=== PATIENT | male | born 1950 | race Caucasian/White ===

== ENCOUNTER 2020-12-17 15:04 | Observation (INO) | payer OTHER ==
--- OUTSIDE RECORDS SUMMARY | 2020-12-17 15:07 | XMS REPORT | Continuity of Care Document ---
:1950 Author Organization [facility] t Address [address] [place] [address] [address]. [address] [place] [address] Care Team Providers Name Role Phone Lida Dumont NP Attending Clinician Problems This patient has no known problems. Allergies, Adverse Reactions, Alerts This patient has no known allergies or adverse reactions. Medications This patient has no known medications. Procedures This patient has no known procedures. Encounters Start End Encounter Admission Attending Care Care Encounter Source Date/Time Date/Time Type Type Clinicians Facility Department ID 2020-11-16 2020-11-16 Emergency Julia [facility] [id number] 18:26:00 20:02:00 Anita Hitchcock [id number] [place] [id number] [place] [id number] Results This patient has no known results.
--- NOTE | 2020-12-17 15:56 | RAD REPORT ---
EXAM DESCRIPTION: CT - Head Brain Wo Cont - 12/17/2020 3:43 pm CLINICAL HISTORY: Slurred speech COMPARISON: 2013 TECHNIQUE: Computed axial tomography of the head was obtained. IV contrast was not requested. All CT scans are performed using dose optimization technique as appropriate and may include automated exposure control or mA/KV adjustment according to patient size. FINDINGS: An intracranial bleed is not seen . The ventricles are normal in caliber. No extra-axial fluid collection is noted. Small low-density area within the right bill radiata has the appearance of an old infarction. Mild low-density within periventricular, deep subcortical white matter probably ischemic changes secondary to small vessel disease. Fluid within the sinuses/ mastoids is not seen. IMPRESSION: No acute intracranial abnormality is seen. If patient's symptoms persist MRI of the bra in would be recommended.
--- NOTE | 2020-12-17 17:02 | RAD REPORT ---
EXAM DESCRIPTION: Leigh Ann Single View12/17/2020 4:54 pm CLINICAL HISTORY: Hypertension COMPARISON: 2017 FINDINGS: The lungs appear clear of acute infiltrate. The heart is normal size IMPRESSION: No acute abnormalities displayed
[2020-12-17 17:20] LABS: Absolute Lymphocytes (CBC) 3.1 K/uL (0.7-4.9); Hematocrit 47.5 % (39.6-49.0); Lymphocytes % 30.1 % (15.3-44.8); MPV 7.8 fL (7.6-11.3); RBC Red Blood Cell Count 5.27 M/uL (4.33-5.43)
[2020-12-17 17:24] LABS: Protime INR 0.88
[2020-12-17 17:28] LABS: BUN Blood Urea Nitrogen 10 mg/dL (7-18); Bicarbonate 27 mmol/L (21-32); Glucose Level 122 mg/dL (74-106); Potassium 4.2 mmol/L (3.5-5.1); Sodium Level 139 mmol/L (136-145)
--- NOTE | 2020-12-17 18:35 | ER ---
Nurse's Notes [facility] Name: Tito Hubbard Age: 70 yrs Sex: Male : 1950 Arrival Date: 12/17/2020 Time: 15:11 Bed 24 Private MD: Diagnosis: Cerebrovascular disease, unspecified;Ataxia, unspecified;ACUTE CVA;Aphasia following cerebral infarction Presentation: 12/17 15:17 Chief complaint: Patient states: Slurred speech, dizzy, confusion started . ll1 States it got better, then got worse again yesterday. L arm pain now. Coronavirus screen: Client denies travel out of the [place] in the last 14 days. At this time, the client does not indicate any symptoms associated with coronavirus-19. Ebola Screen: Patient denies travel to an Ebola-affected area in the 21 days before illness onset. No acute neurological deficit is noted. Initial Sepsis Screen: Does the patient meet any 2 criteria? HR > 90 bpm. No. Patient's initial sepsis screen is negative. Does the patient have a suspected source of infection? No. Patient's initial sepsis screen is negative. Risk Assessment: Do you want to hurt yourself or someone else? Patient reports no desire to harm self or others. Onset of symptoms was December 13, 2020. 15:17 Method Of Arrival: Ambulatory 1 15:17 Acuity: INDIRA 2 ll1 Triage Assessment: 16:15 The onset of the patients symptoms was December 13, 2020 at 08:00. General: Appears in no bp apparent distress. comfortable, Behavior is cooperative, appropriate for age, anxious. Pain: Denies pain. EENT: No deficits noted. Neuro: Reports dizziness, SLURRED SPEECH. Cardiovascular: No deficits noted. Respiratory: No deficits noted. GI: No signs and/or symptoms were reported involving the gastrointestinal system. : No signs and/or symptoms were reported regarding the genitourinary system. Derm: No deficits noted. Musculoskeletal: No deficits noted. Stroke Activation: Symptom onset > 6 hours Physician: Stroke Attending; Name: ; Notified At: ; Arrived At: Physician: Chief Stroke Resident; Name: ; Notified At: ; Arrived At: Physician: Stroke Resident; Name: ; Notified At: ; Arrived At: Physician: ED Attending; Name: ; Notified At: ; Arrived At: Physician: ED Resident; Name: ; Notified At: ; Arrived At: Historical: - Allergies: 15:21 Codeine; ll1 - PMHx: 15:21 Hypertension; Diabetes - NIDDM; Asthma; ll1 - PSHx: 15:21 Tonsillectomy; Appendectomy; Hernia repair; ll1 - Immunization history:: Flu vaccine is not up to date. - Social history:: Smoking status: Patient reports the use of cigarette tobacco products, smokes one-half pack cigarettes per day. Screenin:30 Abuse screen: Denies threats or abuse. Denies injuries from another. Nutritional bp screening: No deficits noted. Tuberculosis screening: No symptoms or risk factors identified. Fall Risk None identified. Assessment: 16:15 General: SEE TRIAGE NOTE. bp 16:15 VAN Scoring: Arm Drift: Patients demonstrates NO arm weakness. Patient is VAN Negative. bp The patient has not been NPO before screening. The patient is alert, and able to follow commands. The patient does not exhibit slurred or garbled speech. The patient is not exhibiting difficulty speaking. The patient does not exhibit difficulty understanding words. The patient is able to swallow own secretions with no drooling or need for suction. Patient tolerated one teaspoon of water. No drooling, immediate coughing, gurgling, or clearing of the throat was noted. The patient tolerated 90mL of water. No drooling, immediate coughing, gurgling, or clearing of the throat was noted. The patient passed the bedside swallow screening. Oral medications may be given as ordered. Contact Physician for further diet orders. Provider notified of bedside swallow screening results: Catalino Youssef MD. T-PA (Activase) Screening: Contraindications: Patient reports onset of signs and symptoms of stroke greater than 6 hours ago: Yes. Rapidly improving condition or minor deficit: Yes. 17:18 Reassessment: No changes from previously documented assessment. Patient and/or family bp updated on plan of care and expected duration. Pain level reassessed. Patient is alert, oriented x 3, equal unlabored respirations, skin warm/dry/pink. NO FOCAL NEURO DEFICITS. 18:34 Reassessment: No changes from previously documented assessment. Patient and/or family bp updated on plan of care and expected duration. Pain level reassessed. Neuro: Gait is steady. 20:00 General: Appears in no apparent distress. comfortable, Behavior is calm, cooperative. sf Pain: Denies pain. Neuro: Level of Consciousness is awake, alert, Oriented to person, place, time, situation, Flight Operations Specialist are equal bilaterally Moves all extremities. Gait is steady, Speech is normal, Facial symmetry appears normal, Intact Denies weakness blurred vision dizziness, difficulty swallowing, paresthesias numbness headache photophobia diplopia. Cardiovascular: No deficits noted. Patient's skin is warm and dry. Rhythm is sinus rhythm. Respiratory: No deficits noted. Airway is patent Respiratory effort is even, unlabored, Respiratory pattern is regular, symmetrical. GI: No deficits noted. No signs and/or symptoms were reported involving the gastrointestinal system. : No deficits noted. No signs and/or symptoms were reported regarding the genitourinary system. EENT: No deficits noted. No signs and/or symptoms were reported regarding the EENT system. Derm: No deficits noted. No signs and/or symptoms reported regarding the dermatologic system. Musculoskeletal: No deficits noted. No signs and/or symptoms reported regarding the musculoskeletal system. 21:02 Reassessment: Patient appears in no apparent distress at this time. No changes from sf previously documented assessment. Patient and/or family updated on plan of care and expected duration. Pain level reassessed. Patient is alert, oriented x 3, equal unlabored respirations, skin warm/dry/pink. Vital Signs: 15:17 BP 154 / 93; Pulse 106; Resp 18; Temp 98.0; Pulse Ox 98% on R/A; Weight 94.35 kg; ll1 Height 5 ft. 10 in. (177.80 cm); Pain 3/10; 16:26 BP 127 / 85; Pulse 96; Resp 18; Temp 97.9(O); Pulse Ox 95% on R/A; mh5 17:17 BP 130 / 75; Pulse 97; Resp 16; Pulse Ox 94% ; bp 18:30 BP 142 / 70; Pulse 94; Resp 17; Pulse Ox 96% ; bp 20:00 BP 134 / 73; Pulse 94; Resp 16; Pulse Ox 97% ; sf 15:17 Body Mass Index 29.84 (94.35 kg, 177.80 cm) ll1 NIH Stroke Scale Scores: 16:15 NIHSS Score: 0 bp 18:35 NIHSS Score: 2 tw4 ED Course: 15:11 Patient arrived in ED. 15:20 Triage completed. ll1 15:22 Arm band placed on. ll1 15:42 CT Head Brain wo Cont In Process Unspecified. EDMS 16:13 Girish Weller, DANIELLA is Primary Nurse. bp 16:25 Catalino Youssef MD is Attending Physician. tw4 16:25 Patient has correct armband on for positive identification. Bed in low position. Call mh5 light in reach. Side rails up X 1. Adult w/ patient. Pillow given. cafeteria monitor on. Pulse ox on. NIBP on. 16:50 Inserted saline lock: 20 gauge in right antecubital area, using aseptic technique. bp Blood collected. 16:53 Stroke CXR 1 View In Process Unspecified. EDMS 18:33 Francisco Blount is Hospitalizing Provider. tw4 19:19 Primary Nurse role handed off by Girish Weller, DANIELLA sf 19:19 Gaurav Mason, DANIELLA is Primary Nurse. sf 20:00 No provider procedures requiring assistance completed. COVID swab sent to lab. Patient sf admitted, IV remains in place. 22:15 Report given to DANIELLA Sims. sf 12/18 07:40 Primary Nurse role handed off by Gaurav Mason, DANIELLA bd Administered Medications: 12/17 18:45 Drug: Aspirin 162 mg Route: PO; bp 19:23 Follow up: Response: No adverse reaction sf 18:45 Drug: PlaVIX (clopidogrel) 300 mg Route: PO; bp 19:22 Follow up: Response: No adverse reaction sf Outcome: 18:34 Decision to Hospitalize by Provider. tw4 21:04 Admitted to ER Hold. Please see [facility] for further documentation. sf 21:04 Condition: stable 21:04 Instructed on the need for admit. 12/18 15:13 Patient left the ED. tw2 NIH Stroke Scale - NIH Stroke Score Date: 12/17/2020 Time: 16:15 Total Score = 0 1a. Level of Consciousness (LOC) - 0(Alert) 1b. Level of Consciousness (LOC) (Year \T\ Age) - 0(Both) 1c. LOC Commands (Open \T\ Closes Eyes/Pit Hand) - 0(Both) 2. Best Gaze (Lateral Gaze Paresis) - 0(Normal) 3. Visual Field Loss - 0(No visual loss) 4. Facial Palsy - 0(Normal) 5a. Left Arm: Motor (10-second hold) - 0(No drift) 5b. Right Arm: Motor (10-second hold) - 0(No drift) 6a. Left Leg: Motor (5-second hold - always test supine) - 0(No drift) 6b. Right Leg: Motor (5-second hold - always test supine) - 0(No drift) 7. Limb Ataxia (finger/nose \T\ heel/morales - test with eyes open) - 0(Absent) 8. Sensory Loss (pinprick arms/legs/face) - 0(Normal) 9. Best Language: Aphasia (description/naming/reading) - 0(No aphasia) 10. Dysarthria (speech clarity - read or repeat words) - 0(Normal) 11. Extinction and Inattention (visual/tactile/auditory/spatial/personal) - 0(No abnormality) Initials: bp NIH Stroke Scale - NIH Stroke Score Date: 12/17/2020 Time: 18:35 Total Score = 2 1a. Level of Consciousness (LOC) - 0(Alert) 1b. Level of Consciousness (LOC) (Year \T\ Age) - 0(Both) 1c. LOC Commands (Open \T\ Closes Eyes/Pit Hand) - 0(Both) 2. Best Gaze (Lateral Gaze Paresis) - 0(Normal) 3. Visual Field Loss - 0(No visual loss) 4. Facial Palsy - 0(Normal) 5a. Left Arm: Motor (10-second hold) - 0(No drift) 5b. Right Arm: Motor (10-second hold) - 0(No drift) 6a. Left Leg: Motor (5-second hold - always test supine) - 0(No drift) 6b. Right Leg: Motor (5-second hold - always test supine) - 0(No drift) 7. Limb Ataxia (finger/nose \T\ heel/morales - test with eyes open) - 0(Absent) 8. Sensory Loss (pinprick arms/legs/face) - 0(Normal) 9. Best Language: Aphasia (description/naming/reading) - 1(Mild to moderate aphasia) 10. Dysarthria (speech clarity - read or repeat words) - 1(Mild to Moderate) 11. Extinction and Inattention (visual/tactile/auditory/spatial/personal) - 0(No abnormality) Initials: tw4 Signatures: Dispatcher [employer] Felicia Silva [place], Whitley mr Casi Pena, RN RN tw2 Renate Amor [facility] Girish Weller, RN RN bp Catalino Youssef MD MD tw4 Zeeshan Gonzales RN RN ll1 Gaurav Mason RN RN
--- NOTE | 2020-12-17 18:35 | EDPHYS ---
Physician Documentation [facility] Name: Tito Hubbard Age: 70 yrs Sex: Male : 1950 Arrival Date: 12/17/2020 Time: 15:11 Bed 24 Private MD: ED Physician Catalino Youssef HPI: 12/17 16:51 This 70 yrs old Male presents to ER via Ambulatory with complaints of Slurred tw4 Speech, Dizziness, Confusion. 16:51 The patient presents to the emergency department with a speech or higher order brain tw4 function problem, aphasia, that is moderate, difficult walking, the patient falls to the left. Onset: The symptoms/episode began/occurred yesterday, last week. Context: occurred at home. Associated signs and symptoms: The patient has no apparent associated signs or symptoms. Severity of symptoms: At their worst the symptoms were moderate in the emergency department the symptoms are unchanged. The patient has not experienced similar symptoms in the past. Historical: - Allergies: 15:21 Codeine; ll1 - PMHx: 15:21 Hypertension; Diabetes - NIDDM; Asthma; ll1 - PSHx: 15:21 Tonsillectomy; Appendectomy; Hernia repair; ll1 - Immunization history:: Flu vaccine is not up to date. - Social history:: Smoking status: Patient reports the use of cigarette tobacco products, smokes one-half pack cigarettes per day. ROS: 16:51 Constitutional: Negative for fever, chills, and weight loss, Eyes: Negative for injury, tw4 pain, redness, and discharge, Cardiovascular: Negative for chest pain, palpitations, and edema, Respiratory: Negative for shortness of breath, cough, wheezing, and pleuritic chest pain, Abdomen/GI: Negative for abdominal pain, nausea, vomiting, diarrhea, and constipation, Back: Negative for injury and pain, MS/Extremity: Negative for injury and deformity. 16:51 Neuro: Positive for speech changes. Exam: 16:51 Constitutional: This is a well developed, well nourished patient who is awake, alert, tw4 and in no acute distress. Head/Face: Normocephalic, atraumatic. Chest/axilla: Normal chest wall appearance and motion. Nontender with no deformity. No lesions are appreciated. Cardiovascular: Regular rate and rhythm with a normal S1 and S2. No gallops, murmurs, or rubs. Normal PMI, no JVD. No pulse deficits. Respiratory: Lungs have equal breath sounds bilaterally, clear to auscultation and percussion. No rales, rhonchi or wheezes noted. No increased work of breathing, no retractions or nasal flaring. Abdomen/GI: Soft, non-tender, with normal bowel sounds. No distension or tympany. No guarding or rebound. No evidence of tenderness throughout. Skin: Warm, dry with normal turgor. Normal color with no rashes, no lesions, and no evidence of cellulitis. MS/ Extremity: Pulses equal, no cyanosis. Neurovascular intact. Full, normal range of motion. 18:35 Neuro: Orientation: is normal, Mentation: is normal, Memory: is normal, Cranial nerves: tw4 Speech is dysarthric, slurred, Cerebellar function: is grossly normal, Motor: is normal, Sensation: is normal, Gait: is unsteady. Vital Signs: 15:17 BP 154 / 93; Pulse 106; Resp 18; Temp 98.0; Pulse Ox 98% on R/A; Weight 94.35 kg; ll1 Height 5 ft. 10 in. (177.80 cm); Pain 3/10; 16:26 BP 127 / 85; Pulse 96; Resp 18; Temp 97.9(O); Pulse Ox 95% on R/A; mh5 17:17 BP 130 / 75; Pulse 97; Resp 16; Pulse Ox 94% ; bp 18:30 BP 142 / 70; Pulse 94; Resp 17; Pulse Ox 96% ; bp 20:00 BP 134 / 73; Pulse 94; Resp 16; Pulse Ox 97% ; sf 15:17 Body Mass Index 29.84 (94.35 kg, 177.80 cm) ll1 NIH Stroke Scale Scores: 16:15 NIHSS Score: 0 bp 18:35 NIHSS Score: 2 tw4 MDM: 18:31 Data reviewed: vital signs, nurses notes. Data interpreted: Pulse oximetry: tw4 Interpretation:. Counseling: I had a detailed discussion with the patient and/or guardian regarding: the historical points, exam findings, and any diagnostic results supporting the discharge/admit diagnosis, lab results, radiology results. Physician consultation: Francisco Blount regarding admission, patient's condition, and will see patient. 18:34 Patient medically screened. tw4 12/17 16:26 Order name: Basic Metabolic Panel; Complete Time: 17:38 tw4 12/17 17:38 Interpretation: Normal except: GLUC 122. 12/17 16:26 Order name: CBC with Diff; Complete Time: 17:38 tw4 12/17 17:38 Interpretation: Within normal limits. tw12/17 16:26 Order name: Protime (+inr); Complete Time: 17:38 tw4 12/17 17:38 Interpretation: Within normal limits: PT 10.1. 12/17 16:26 Order name: Ptt, Activated; Complete Time: 17:38 tw4 12/17 17:38 Interpretation: PTT 30.9. tw4 12/17 19:45 Order name: Comprehensive Metabolic Panel EDMS 12/17 19:45 Order name: Comprehensive Metabolic Panel EDMS 12/17 19:45 Order name: Lipid Profile EDMS 12/17 19:45 Order name: Lipid Profile EDMS 12/17 19:45 Order name: Magnesium EDMS 12/17 19:45 Order name: Magnesium EDMS 12/17 19:45 Order name: Phosphorus EDMS 12/17 19:45 Order name: Phosphorus EDMS 12/17 19:45 Order name: T4 Free EDMS 12/17 19:45 Order name: Thyroid Stimulating Hormone EDMS 12/17 15:24 Order name: CT Head Brain wo Cont; Complete Time: 16:25 12/17 16:26 Order name: Stroke CXR 1 View; Complete Time: 17:38 4 12/17 18:35 Order name: MRI - Brain W/Wo Cont tw 12/17 19:45 Order name: CBC with Automated Diff EDMS 12/17 19:45 Order name: CBC with Automated Diff EDMS 12/17 19:47 Order name: COVID-19 : Document "Date of Symptom Onset" if Symptomatic. mw2 12/17 21:08 Order name: SARS-COV-2 RT PCR EDMS 12/17 23:36 Order name: Glucose, Ancillary Testing EDMS 12/18 01:44 Order name: Urinalysis EDMS 12/18 05:47 Order name: Hemoglobin A1c EDMS 12/18 08:00 Order name: MRI EDMS 12/18 08:08 Order name: Glucose, Ancillary Testing EDMS 12/18 11:28 Order name: Glucose, Ancillary Testing EDMS 12/18 13:59 Order name: CT EDPR 12/18 14:06 Order name: CT EDPR 12/17 16:26 Order name: EKG; Complete Time: 16:27 tw4 12/17 16:26 Order name: Accucheck; Complete Time: 17:22 tw4 12/17 16:26 Order name: Cardiac monitoring; Complete Time: 17:23 tw4 12/17 16:26 Order name: EKG - Nurse/Tech; Complete Time: 17:23 tw4 12/17 16:26 Order name: IV Saline Lock; Complete Time: 17:23 tw4 12/17 16:26 Order name: Labs collected and sent; Complete Time: 17:23 tw4 12/17 16:26 Order name: NPO; Complete Time: 17:23 tw4 12/17 16:26 Order name: O2 Per Protocol; Complete Time: 17:23 tw4 12/17 16:26 Order name: O2 Sat Monitoring; Complete Time: 17:23 tw4 12/17 16:26 Order name: Stroke Swallow Screen; Complete Time: 17:23 tw4 12/17 19:42 Order name: CONS Physician Consult EDPR 12/17 19:45 Order name: Consistent Carb (ADA) 1800 Eulogio EDMS 12/17 19:45 Order name: Dietitian Consult EDPR EC:35 Rate is 93 beats/min. Rhythm is regular. QRS [place] is Normal. VT interval is normal. QT tw4 interval is normal. No Q waves. T waves are Normal. No ST changes noted. Clinical impression: NSR w/ Non-specific ST/T Changes. Interpreted by me. Reviewed by me. Administered Medications: 18:45 Drug: Aspirin 162 mg Route: PO; bp 19:23 Follow up: Response: No adverse reaction sf 18:45 Drug: PlaVIX (clopidogrel) 300 mg Route: PO; bp 19:22 Follow up: Response: No adverse reaction sf Disposition: 12/17/20 18:34 Hospitalization ordered by Francisco Blount for Inpatient Admission. Preliminary diagnosis are Cerebrovascular disease, unspecified, Ataxia, unspecified, ACUTE CVA, Aphasia following cerebral infarction. - Bed requested for [facility] ER HOLD. - Status is Inpatient Admission. tw2 - Condition is Stable. - Problem is new. - Symptoms are unchanged. NIH Stroke Scale - NIH Stroke Score Date: 12/17/2020 Time: 16:15 Total Score = 0 1a. Level of Consciousness (LOC) - 0(Alert) 1b. Level of Consciousness (LOC) (Year \\T\\ Age) - 0(Both) 1c. LOC Commands (Open \\T\\ Closes Eyes/Meter Calibrator) - 0(Both) 2. Best Gaze (Lateral Gaze Paresis) - 0(Normal) 3. Visual Field Loss - 0(No visual loss) 4. Facial Palsy - 0(Normal) 5a. Left Arm: Motor (10-second hold) - 0(No drift) 5b. Right Arm: Motor (10-second hold) - 0(No drift) 6a. Left Leg: Motor (5-second hold - always test supine) - 0(No drift) 6b. Right Leg: Motor (5-second hold - always test supine) - 0(No drift) 7. Limb Ataxia (finger/nose \\T\\ heel/morales - test with eyes open) - 0(Absent) 8. Sensory Loss (pinprick arms/legs/face) - 0(Normal) 9. Best Language: Aphasia (description/naming/reading) - 0(No aphasia) 10. Dysarthria (speech clarity - read or repeat words) - 0(Normal) 11. Extinction and Inattention (visual/tactile/auditory/spatial/personal) - 0(No abnormality) Initials: bp NIH Stroke Scale - NIH Stroke Score Date: 12/17/2020 Time: 18:35 Total Score = 2 1a. Level of Consciousness (LOC) - 0(Alert) 1b. Level of Consciousness (LOC) (Year \\T\\ Age) - 0(Both) 1c. LOC Commands (Open \\T\\ Closes Eyes/Meter Calibrator) - 0(Both) 2. Best Gaze (Lateral Gaze Paresis) - 0(Normal) 3. Visual Field Loss - 0(No visual loss) 4. Facial Palsy - 0(Normal) 5a. Left Arm: Motor (10-second hold) - 0(No drift) 5b. Right Arm: Motor (10-second hold) - 0(No drift) 6a. Left Leg: Motor (5-second hold - always test supine) - 0(No drift) 6b. Right Leg: Motor (5-second hold - always test supine) - 0(No drift) 7. Limb Ataxia (finger/nose \\T\\ heel/morales - test with eyes open) - 0(Absent) 8. Sensory Loss (pinprick arms/legs/face) - 0(Normal) 9. Best Language: Aphasia (description/naming/reading) - 1(Mild to moderate aphasia) 10. Dysarthria (speech clarity - read or repeat words) - 1(Mild to Moderate) 11. Extinction and Inattention (visual/tactile/auditory/spatial/personal) - 0(No abnormality) Initials: tw4 Signatures: Dispatcher [employer] EDMS Jasmine Dorsey, RN RN tl1 Casi Pena RN RN tw2 Girish Weller RN RN Catalino Farooq MD MD tw4 Zeeshan Gonzales RN RN 1 Gaurav Mason RN Corrections: (The following items were deleted from the chart) 12/18 02:23 12/17 18:34 Hospitalization Ordered by Francisco Blount for Inpatient Admission. tl1 Preliminary diagnosis is Cerebrovascular disease, unspecified; Ataxia, unspecified; ACUTE CVA; Aphasia following cerebral infarction. Bed requested for Telemetry/MedSurg (observation). Status is Inpatient Admission. Condition is Stable. Problem is new. Symptoms are unchanged. tw4 12/18 15:13 02:23 12/17/2020 18:34 Hospitalization Ordered by Francisco Blount for Inpatient tw2 Admission. Preliminary diagnosis is Cerebrovascular disease, unspecified; Ataxia, unspecified; ACUTE CVA; Aphasia following cerebral infarction. Bed requested for [facility] ER HOLD. Status is Inpatient Admission. Condition is Stable. Problem is new. Symptoms are unchanged. tl1
[2020-12-17] MEDS ORDERED: CLOPIDOGREL 75 MG TABLET ONE (19:02)
[2020-12-17] MEDS ORDERED: ASPIRIN EC 81 MG TAB PO ONE ×2 (19:02→19:08)
[2020-12-17] MEDS ORDERED: ALBUTEROL 2.5 MG/3 ML NEB SOL NEB PRN (19:41)
[2020-12-17] MEDS ORDERED: ONDANSETRON 4 MG/2 ML VIAL IV PRN (19:41)
[2020-12-17] MEDS ORDERED: ACETAMINOPHEN 500 MG TAB PO PRN (19:41)
[2020-12-17 20:11] LABS: Thyroid Stimulating Hormone 0.993 uIU/mL (0.360-3.740)
--- NOTE | 2020-12-17 20:18 | P.HP ---
Certification for Inpatient Patient admitted to: Observation With expected LOS: <2 Midnights Patient will require the following post-hospital care: None Practitioner: I am a practitioner with admitting privileges, knowledge of patient current condition, hospital course, and medical plan of care. Services: Services provided to patient in accordance with Admission requirements found in Title 42 Section 412.3 of the Code of Federal Regulations <Smith Wang - Last Filed: 12/17/20 20:13> Patient History Date of Service: 12/17/20 Primary Care Provider: none Reason for admission: slurred speech, abnormal gait History of Present Illness: Mr. Hubbard is a 70 yo male with history of multiple CVAs, HTN, and DM here today for slurred speech, abnormal gait, and blurred vision. He says symptoms began night but then improved until they began again Thursday after zoroastrianism. Symptoms resolved again, then began again today. He reports symptoms improve with rest. At bedside, he is currently asymptomatic aside from a R sided headache. He says he has had 3 CVAs before with the largest one occurring in 08/2013. He stopped taking ASA + plavix because he felt like he was bruising more easily on his arms. Currently smokes 1/[address] Head wnl. CXR wnl. - Past Medical/Surgical History Diabetic: Yes -: multiple CVAs -: HTN -: DM -: hernia repair -: appendectomy - Family History Family History: Reviewed- Non-Contributory (adopted) - Social History Smoking Status: Current every day smoker Counseled patient to stop smoking for: less than 10 minutes Smoking therapy provided: Yes Patient receptive to therapy: No Alcohol use: No CD- Drugs: No Caffeine use: Yes Place of Residence: Home <Smith Wang - Last Filed: 12/17/20 20:13> Date of Service: 12/18/20 <clint cadet - Last Filed: 12/18/20 08:16> Allergies codeine Allergy (Verified 12/18/20 01:26) Anaphylaxis Review of Systems General: Unremarkable Eyes: Vision Change, As per HPI ENT: Unremarkable Respiratory: Unremarkable Cardiovascular: Unremarkable Gastrointestinal: Unremarkable Genitourinary: Unremarkable Musculoskeletal: Unremarkable Integumentary: Unremarkable Neurological: Incoordination, Change in Speech, As per HPI Lymphatics: Unremarkable <Smith Wang - Last Filed: 12/17/20 20:13> Physical Examination - Physical Exam General: Alert, In no apparent distress, Oriented x3, Cooperative HEENT: Atraumatic, Normocephalic, PERRLA, Mucous membr. moist/pink, EOMI, Sclerae nonicteric Neck: Supple, 2+ carotid pulse no bruit, JVD not distended, No Thyromegaly, No LAD Respiratory: Diminished, Expiratory wheezes Cardiovascular: No edema, Normal pulses, Regular rate/rhythm, Normal S1 S2, No gallops, No rubs, No murmurs Capillary refill: <2 Seconds Gastrointestinal: Normal bowel sounds, Soft and benign, Non-distended, No ascites, No tenderness, No masses, No rebound, No guarding Musculoskeletal: No clubbing, No swelling, No contractures, No erythema, No tenderness, No warmth Integumentary: No rashes, No breakdown, No significant lesion, No tende rness/swelling, No erythema, No warmth, No cyanosis Neurological: Normal gait, Normal speech, Normal strength at 5/5 x4 extr, Normal tone, Sensation intact, Cranial nerves 3-12 intact, Normal affect, Other (no focal neurological deficits, speech intact, ambulating to restroom without assistance) Lymphatics: No axilla or inguinal lymphadenopathy - Studies Laboratory Data (last 24 hrs) 12/17/20 16:50: PT 10.1, INR 0.88, APTT 30.9 12/17/20 16:50: WBC 10.30, Hgb 15.8, Hct 47.5, Plt Count 378 12/17/20 16:50: Sodium 139, Potassium 4.2, BUN 10, Creatinine 0.82, Glucose 122 H <Smith Wang - Last Filed: 12/17/20 20:13> - Studies Laboratory Data (last 24 hrs) 12/17/20 16:50: PT 10.1, INR 0.88, APTT 30.9 12/17/20 16:50: WBC 10.30, Hgb 15.8, Hct 47.5, Plt Count 378 12/17/20 16:50: Sodium 139, Potassium 4.2, BUN 10, Creatinine 0.82, Glucose 122 H <clint cadet - Last Filed: 12/18/20 08:16> Assessment and Plan - Problems (Diagnosis) (1) History of CVA (cerebrovascular accident) Current Visit: Yes Status: Chronic (2) Hypertension Current Visit: Yes Status: Chronic Qualifiers: Hypertension type: essential hypertension Qualified Code(s): I10 - Essential (primary) hypertension (3) Diabetes Current Visit: Yes Status: Chronic Qualifiers: Diabetes mellitus type: type 2 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 Palafox consulted Aspirin, plavix, folic acid, and statin daily lipid panel and A1c pending nicotine patch PRN sliding scale insulin and Accuchecks for DM will reconcile and continue other home medications and inhalers Discharge Plan: Home Plan to discharge in: 24 Hours - Advance Directives Does patient have a Living Will: No Does patient have a Durable POA for Healthcare: No - Code Status/Comfort Care Code Status Assessed: Yes (full code) Critical Care: No Time Spent Managing Pts Care (In Minutes): 70 <Smith Wang - Last Filed: 12/17/20 20:13> Physician Review: Patient Assessed, Agree with Above Assessment and Plan Physician Review Additional Text: Stroke-like symptoms. R/o Acute CVA. Plan: MRI of the brain. ASA and Plavix recommended. Neurology consult <clint cadet - Last Filed: 12/18/20 08:16>
[2020-12-17] MEDS: INSULIN -REGULAR HUMAN 50 UNIT/0.5 ML ML SQ SCH (21:00)
[2020-12-17] MEDS ORDERED: ATORVASTATIN 10 MG TAB PO SCH (21:00)
[2020-12-17 22:47] VITALS: BMI 29.8
[2020-12-17] MEDS ORDERED: ATORVASTATIN 20 MG TAB ONE (23:35)
[2020-12-18 01:39] LABS: Urine Appearance CLEAR (Clear); Urine Bilirubin NEGATIVE (Negative); Urine Blood NEGATIVE (Negative); Urine Color YELLOW (Yellow); Urine Glucose 1+ (Negative); Urine Protein NEGATIVE (Negative); Urine Urobilinogen 0.2 mg/dL (0.2-1.0)
[2020-12-18 01:44] LABS: Urine Microscopic Reflex NO UMIC
[2020-12-18 04:13] VITALS: TEMP 97.9
[2020-12-18 05:12] LABS: Absolute Lymphocytes (CBC) 2.9 K/uL (0.7-4.9); Basophils % 0.8 % (0-1.3); Hematocrit 41.3 % (39.6-49.0); Lymphocytes % 29.6 % (15.3-44.8); MPV 7.7 fL (7.6-11.3); RBC Red Blood Cell Count 4.61 M/uL (4.33-5.43)
[2020-12-18 05:25] LABS: ALT/SGPT 27 U/L (12-78); AST/SGOT 17 U/L (15-37); Albumin 3.2 g/dL (3.4-5.0); Alkaline Phosphatase 87 U/L (45-117); BUN Blood Urea Nitrogen 12 mg/dL (7-18); Bicarbonate 28 mmol/L (21-32); Bilirubin Total 0.2 mg/dL (0.2-1.0); Glucose Level 113 mg/dL (74-106); HDL Cholesterol 49 mg/dL (40-60); LDL Cholesterol, Calculated 95 (<130); Magnesium 2.2 mg/dL (1.8-2.4); Phosphorus 3.5 mg/dL (2.5-4.9); Protein, Total 6.1 g/dL (6.4-8.2); Sodium Level 141 mmol/L (136-145)
[2020-12-18] MEDS: INSULIN -REGULAR HUMAN 50 UNIT/0.5 ML ML SQ SCH ×2 (07:30→11:20)
--- NOTE | 2020-12-18 08:00 | RAD REPORT ---
EXAM DESCRIPTION: MRI - Brain W/Wo Cont - 12/18/2020 7:46 am CLINICAL HISTORY: CVA;Aphasia COMPARISON: MRI BRAIN WITHOUT CONTRAST dated 02/20/2014; Head Brain Wo Cont dated 12/17/2020 TECHNIQUE: Sagittal and axial T1-weighted images were obtained. Axial PD/heavily T2-weighted and T2- FLAIR images were obtained along with axial DWI/ADC mapping sequences. Coronal heavily T2 weighted s equence obtained. Axial and coronal post-contrast T1-weighted images were also obtained. A 20 ml Mul tihance contrast following utilized. FINDINGS: Diffusion-weighted imaging shows multiple foci of abnormal diffusion in a 15 millimeter ar ea of the central sharon left of midline. There is corresponding diminished signal on ADC mapping. Ther e is corresponding hyperintense T2/IR signal and minimal patchy enhancement on the postcontrast imagi ng. No mass lesions seen. This has the appearance of nonhemorrhagic infarction rather than mass lesio n. No acute infarction changes elsewhere on this examination. Atrophy changes are minimal with normal si ze ventricles. Moderate for age T2/IR white matter signal abnormalities are present in the cerebral w guido matter typical for chronic ischemic change. Similar signal abnormality seen in the lateral ramiro n of the right thalamus and posterior limb internal capsule. Chronic ischemic change is present in th e sharon in addition to the area of acute infarction. No mass effect, edema or shift of midline structures. [place]i matter- white matter differentiation is p reserved. Signal voids are seen as a normal finding within the major intracranial vessels. Mastoid air cells and paranasal sinuses are clear. IMPRESSION: Acute nonhemorrhagic CVA in the brainstem. This involves a patchy 15 millimeter area of the central sharon left of midline. Post-contrast images show minimal enhancement within the infarcted tissue. There is no mass lesion pr esent. Patient has minimal atrophy change but does have moderate chronic ischemic change in the cerebral hem ispheres, brainstem and lateral margin of the right thalamus/internal capsule junction.
[2020-12-18] MEDS ORDERED: NICOTINE 21 MG/PAT TD ONE (08:17)
[2020-12-18] MEDS ORDERED: CLOPIDOGREL 75 MG TABLET ONE (08:17)
[2020-12-18] MEDS ORDERED: ASPIRIN EC 81 MG TAB PO ONE (08:17)
[2020-12-18] MEDS ORDERED: FOLIC ACID 1 MG TABLET ONE (08:17)
[2020-12-18] MEDS ORDERED: ENOXAPARIN 40 MG/0.4 ML SQ ONE (08:18)
[2020-12-18] MEDS ORDERED: FOLIC ACID 1 MG TABLET PO SCH (09:00)
[2020-12-18] MEDS ORDERED: NICOTINE 14 MG/PAT TD SCH (09:00)
[2020-12-18] MEDS ORDERED: ASPIRIN EC 81 MG TAB PO SCH (09:00)
[2020-12-18] MEDS ORDERED: ENOXAPARIN 40 MG/0.4 ML SQ SCH (09:00)
[2020-12-18] MEDS ORDERED: CLOPIDOGREL 75 MG TABLET PO SCH (09:00)
[2020-12-18 10:34] VITALS: O2SAT 96
[2020-12-18] MEDS ORDERED: INSULIN -REGULAR HUMAN 50 UNIT/0.5 ML ML ONE (11:37)
[2020-12-18 11:39] VITALS: BP 129/76
--- NOTE | 2020-12-18 12:15 | EKG ---
Test Date: 2020-12-17 Test Time: 17:16:06 Sewer Connector: SANDRINE MEASUREMENT RESULTS: Intervals: Rate: 93 CA: 176 QRSD: 74 QT: 348 QTc: 432 Collison: P: 76 CA: 176 QRS: -36 T: 79 INTERPRETIVE STATEMENTS: Normal sinus rhythm Left axis deviation Pulmonary disease pattern Septal infarct, age undetermined Inferior infarct, age undetermined Abnormal ECG Compared to ECG 07/15/2014 05:31:58 Left-axis deviation now present Myocardial infarct finding now present Electronically Signed On 12-18-20 12:13:26 CDT by Kj Ross
--- NOTE | 2020-12-18 13:58 | RAD REPORT ---
EXAM DESCRIPTION: CT - Head angio - 12/18/2020 1:09 pm CLINICAL HISTORY: Acute CVA Headache, drowsiness, CVA symptomology COMPARISON: Head Brain Wo Cont dated 12/17/2020; CT-STROKE BRAIN W/O CONTRAST dated 07/15/2014 TECHNIQUE: CT angiography of the head was performed with MIPs. All CT scans are performed using dose optimization technique as appropriate and may include automated exposure control or mA/KV adjustment according to patient size. FINDINGS: No evidence of aneurysm is detected. No flow-limiting stenosis or vascular malformation id entified. Antegrade flow is seen in the vertebral arteries. The right vertebral artery is dominant. The visualized dural venous sinuses are patent. IMPRESSION: No significant flow abnormality is detected.
--- NOTE | 2020-12-18 14:05 | RAD REPORT ---
EXAM DESCRIPTION: CT - Neck Angio - 12/18/2020 1:09 pm CLINICAL HISTORY: Acute CVA COMPARISON: CT HEAD CSPINE MPR WO CONTRAST dated 07/16/2013 TECHNIQUE: CT angiography of the neck vessels was performed with MIPs. All CT scans are performed using dose optimization technique as appropriate and may include automated exposure control or mA/KV adjustment according to patient size. FINDINGS: A left aortic arch is identified with normal three vessel configuration of the great vesse ls. Significant hard plaque is present involving the left common carotid artery resulting in approximatel y 50-60% stenosis based on NASCET criteria. Moderate hard plaque is seen in both carotid bulbs slightly more significant on the right resulting 5 0-70% stenosis bilaterally based on NASCET criteria Right vertebral artery is dominant. IMPRESSION: Moderate atherosclerotic plaquing is seen particularly in the left common carotid artery as well as both carotid bulbs resulting in moderate levels of stenosis as described.
--- NOTE | 2020-12-18 14:56 | P.DS ---
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 His symptoms were intermittent, had about 3 episodes over the past 5 days. He has a history of 3 CVAs in the past. He stopped taking his aspirin and Plavix. Patient stated he was also taking Xarelto in the past for irregular heartbeat but he stopped taking it because he could not afford it at that time. His symptoms had resolved by the time he was seen for examination for admission in the ED. He continues to smoke cigarette. CT Head wnl. CXR wnl. Patient admitted for stroke workup. Hospital Course: MRI of the brain done reported acute CVA notably in the left sharon. Patient was asymptomatic with no neurologic symptoms or signs during the hospital stay. CTA head and neck done showed no significant major vessel if stenosis or occlusions the only intervention. LDL 95. Patient ambulated with no issues. He requests to go home today. Case discussed with Dr. Palafox. Patient is not ready to stay for to have an echocardiogram done. He is discharged per his request and informed to follow with his PCP for arrangement for an echocardiogram. He is prescribed Xarelto and aspirin for secondary prophylaxis. His other medications are resumed on discharge. Vital Signs/Physical Exam: Temp Pulse Resp BP Pulse Ox 97.9 F 86 18 129/76 96 12/18/20 04:00 12/18/20 11:38 12/18/20 11:38 12/18/20 11:38 12/18/20 11:38 General: Alert, In no apparent distress, Oriented x3 HEENT: Mucous membr. moist/pink Neck: JVD not distended Respiratory: Clear to auscultation bilaterally, Normal air movement Cardiovascular: No edema, Regular rate/rhythm, Normal S1 S2 Gastrointestinal: Soft and benign, Non-distended, No tenderness Musculoskeletal: No swelling Integumentary: No rashes, No erythema Neurological: Normal speech, Normal strength at 5/5 x4 extr, Cranial nerves 3-12 intact Laboratory Data at Discharge: WBC 9.90 K/uL (4.3-10.9) 12/18/20 04:34 Hgb 14.0 g/dL (13.6-17.9) 12/18/20 04:34 Hct 41.3 % (39.6-49.0) 12/18/20 04:34 Plt Count 343 K/uL (152-406) 12/18/20 04:34 PT 10.1 SECONDS (9.5-12.5) 12/17/20 16:50 INR 0.88 12/17/20 16:50 APTT 30.9 SECONDS (24.3-36.9) 12/17/20 16:50 Sodium 141 mmol/L (136-145) 12/18/20 04:34 Potassium 4.0 mmol/L (3.5-5.1) 12/18/20 04:34 BUN 12 mg/dL (7-18) 12/18/20 04:34 Creatinine 0.82 mg/dL (0.55-1.3) 12/18/20 04:34 Glucose 113 mg/dL (74-106) H 12/18/20 04:34 Phosphorus 3.5 mg/dL (2.5-4.9) 12/18/20 04:34 Magnesium 2.2 mg/dL (1.8-2.4) 12/18/20 04:34 Total Bilirubin 0.2 mg/dL (0.2-1.0) 12/18/20 04:34 AST 17 U/L (15-37) 12/18/20 04:34 ALT 27 U/L (12-78) 12/18/20 04:34 Alkaline Phosphatase 87 U/L (45-117) 12/18/20 04:34 Triglycerides 152 mg/dL (<150) H 12/18/20 04:34 Cholesterol 174 mg/dL (<200) 12/18/20 04:34 HDL Cholesterol 49 mg/dL (40-60) 12/18/20 04:34 Cholesterol/HDL Ratio 3.55 12/18/20 04:34 Home Medications: Albuterol Sulfate [Proair Hfa] 2 puff IH Q4H PRN 12/18/20 Aspirin [Aspirin EC 81 MG] 81 mg PO DAILY #30 tablet. 12/18/20 Atorvastatin Calcium [Lipitor] 40 mg PO BEDTIME #30 tablet 12/18/20 Budesonide/Formoterol Fumarate [Symbicort 160-4.5 Mcg Inhaler] 2 puff IH BID 12/18/20 Folic Acid 1 mg PO DAILY #30 tablet 12/18/20 Glipizide [Glipizide Xl] 10 mg PO BID 12/18/20 Lisinopril [Zestril] 20 mg PO DAILY 12/18/20 Metformin HCl 1,000 mg PO BID 12/18/20 Rivaroxaban [Xarelto] 20 mg PO DAILY #30 tablet 12/18/20 New Medications: Aspirin [Aspirin EC 81 MG] 81 mg PO DAILY #30 tablet. Folic Acid 1 mg PO DAILY #30 tablet Atorvastatin Calcium [Lipitor] 40 mg PO BEDTIME #30 tablet Rivaroxaban [Xarelto] 20 mg PO DAILY #30 tablet Physician Discharge Instructions: You need an echocardiogram done as part of workup for for the new acute stroke. Place called your primary care physician to make arrangements for you to do an echocardiogram. He are also advised not to drive for the next 48 hours. Diet: ADA Activity: Fall precautions Followup: Mukesh Palafox MD [ASSOCIATE-ACTIVE - CAN ADMIT] - NONE,NONE [Primary Care Provider] - 1 Week
== END 2020-12-18 15:11 | disposition home or self-care (01) ==
LOC: ER 15:04 → ERHOLD 19:40 → OBSVTOIN 12-18 10:43 → INTOOBSV 12-18 10:43
PROVIDERS: ADMIT Internal Medicine; ATTEND Internal Medicine
DX: I63.9 Cerebral infarction, unspecified (principal); E11.9 Type 2 diabetes mellitus without complications; I10 Essential (primary) hypertension; Z86.73 Personal history of transient ischemic attack (TIA), and cerebral infarction without residual deficits; J45.909 Unspecified asthma, uncomplicated; F17.210 Nicotine dependence, cigarettes, uncomplicated; Z20.822 Contact with and (suspected) exposure to COVID-19; R94.31 Abnormal electrocardiogram [ECG] [EKG]; R29.702 NIHSS score 2
CPT/HCPCS: 93005; 85025 ×2; 80048; 36415 ×2; 83735; 84100; 85610; 80061; 82947 ×3; 85730; 84443; 81003; 83036; 84439; 80053; 70450; 70496; 70498; 71045; 70553; 94760 ×2; 99285; U0003; Q9967; J1650; G0378 ×2